=== PATIENT | female | born 1980 | race Caucasian/White ===

== ENCOUNTER → 2021-05-18 | Outpatient (CLI) | payer OTHER | LOC: MC.RAD 10:12 | DX: Z12.31 Encounter for screening mammogram for malignant neoplasm of breast (principal) ==

== ENCOUNTER 2021-12-07 10:23 | Emergency (ER) | payer OTHER ==
[~2021-12-07] VITALS: Ht 172.7 cm; Wt 65.9 kg
[2021-12-07 10:40] VITALS: BP 124/90; TEMP 97.5
[2021-12-07 11:23] LABS: COLLECTION METHOD CLEAN CATCH
[2021-12-07 11:33] LABS: HEMATOCRIT 38.5 % (37.0-47.0); HEMOGLOBIN 12.6 g/dl (12.5-16.0); MEAN CELL VOLUME 88 fl (80.0-100.0); MEAN CORPUSCULAR HEMOGLOBIN 29 pg (27-31); MEAN CORPUSCULAR HGB CONC 33 g/dl (33.0-37.0); MEAN PLATELET VOLUME 9.5 fl (7.4-10.4); PLATELET COUNT 253 K/mm3 (130-400); REDCELL DISTRIBUTION WIDTH-CV 14.8 % (11.5-14.5)
[2021-12-07 11:46] LABS: ALBUMIN 3.6 gm/dL (3.5-5.0); BILIRUBIN,TOTAL 0.3 mg/dL (0.2-1.2); CALCIUM 8.9 mg/dL (8.4-10.2); CREATININE, serum 0.74 mg/dL (0.57-1.11); POTASSIUM 3.2 mmol/L (3.5-4.5); TOTAL PROTEIN 7.4 gm/dL (6.2-8.1)
[2021-12-07 11:57] LABS: BAND 11 % (0-10); LYMPHOCYTE 33 % (20.0-51.0); NEUTROPHILS 45 % (42.0-75.2); PLATELET ESTIMATE NORMAL (NORMAL)
[2021-12-07 12:25] LABS: MUCOUS Present (NOT PRESENT); PH 6 (5-8); SQUAMOUS EPITHELIAL 0-2 /hpf (0-10); URINE APPEARANCE Hazy (CLEAR/HAZY); URINE BACTERIA None Seen /hpf (NONE SEEN); URINE BILIRUBIN Negative (NEGATIVE); URINE BLOOD 2+ (NEGATIVE); URINE COLOR Yellow (YELLOW); URINE GLUCOSE Negative (NEGATIVE); URINE KETONE Negative (NEGATIVE); URINE LEUKOCYTE ESTERASE Negative (NEGATIVE); URINE NITRATE Negative (NEGATIVE); URINE PROTEIN(semi-quant) Negative (NEGATIVE); URINE UROBILINOGEN Negative (NEGATIVE)
[2021-12-07] MEDS ORDERED: ZOFRAN ODT4 MG PO (12:35)
[2021-12-07 12:58] VITALS: PULSE 84
== END 2021-12-07 12:58 | disposition home or self-care (01) ==
LOC: COL.ER 10:23
PROVIDERS: Physician Assistant
DX: E86.0 Dehydration (principal); R19.7 Diarrhea, unspecified; R51.9 Headache, unspecified; E87.6 Hypokalemia; R11.0 Nausea; F17.210 Nicotine dependence, cigarettes, uncomplicated
CPT/HCPCS: J2405; J7030